=== PATIENT | male | born 1940 | race African-American/Black ===

== ENCOUNTER 2017-10-24 13:26 | Emergency (ER) | payer MEDICARE ==
[~2017-10-24] VITALS: Ht 175.3 cm; Wt 72.6 kg
[2017-10-24] MEDS ORDERED: Sodium Chloride 500ML 500 ML IV ONE (13:29)
[2017-10-24 13:51] VITALS: BP 86/66
[2017-10-24 14:03] LABS: BASOPHILS % (AUTO) 0.8 % (0.0-2.0); HEMATOCRIT 40.5 % (42.0-52.0); LYMPHOCYTES % (AUTO) 19.4 % (20.0-45.0); MEAN CORPUSCULAR VOLUME 100 FL (80-99); MONOCYTES % (AUTO) 10.2 % (1.0-10.0); NEUTROPHILS % (AUTO) 67.7 % (45.0-75.0); PLATELET COUNT 102 K/UL (150-450); RED BLOOD COUNT 4.06 M/UL (4.70-6.10); RED CELL DISTRIBUTION WIDTH 12.6 % (11.6-14.8)
[2017-10-24 14:15] LABS: INR 1.1 (0.9-1.1)
[2017-10-24 14:19] LABS: ANION GAP 6 mmol/L (5-15); BLOOD UREA NITROGEN 14 mg/dL (7-18); CARBON DIOXIDE 27 MMOL/L (21-32); CHLORIDE 108 MMOL/L (98-107); CREATININE 1.3 MG/DL (0.55-1.30); POTASSIUM 4.3 MMOL/L (3.5-5.1); SODIUM 141 MMOL/L (136-145)
[2017-10-24 14:29] LABS: ALANINE AMINOTRANSFERASE 29 U/L (12-78); ALBUMIN 3.2 G/DL (3.4-5.0); ALBUMIN/GLOBULIN RATIO 1.1 (1.0-2.7); ALKALINE PHOSPHATASE 57 U/L (46-116); ASPARTATE AMINO TRANSFERASE 20 U/L (15-37); BILIRUBIN,TOTAL 0.4 MG/DL (0.2-1.0); CREATINE KINASE 190 U/L (26-308)
--- NOTE | 2017-10-24 14:33 | Emergency Room Report ---
History of Present Illness General Chief Complaint: Syncope Source: Patient Present Illness HPI The patient presents post syncopal episode. He was in a swimming pool. He felt weakness. They got him out of the pool before he passed out. When paramedics arrived he was less responsive than his baseline however his blood pressure was also low. They started an IV and gave him a bolus of 250 of normal saline. This led to his blood pressure being slightly better to 86. Blood glucose also was 86. The patient has a history of several syncopal episodes in the past. He's been admitted at [place] with evaluation. His states that he has not unable to find out the etiology. Many times his heart rate is slow and sometimes his blood pressure was low. Her graft the patient's denies any fever, cough, pain, vomiting or diarrhea or dysuria or change in odor of urine. There is no swelling in extremities. There's been no clots in the past. History is limited because the patient has dementia and is unable to answer. He doesn't speak but will follow commands. Allergies: Coded Allergies: PENICILLINS (Verified Allergy, Unknown, 10/24/17) Patient History Limited by: medical condition Past Medical History: see triage record Social History: Denies: smoking, alcohol use, drug use Social History Narrative at home with family Reviewed Nursing Documentation: PMH: Agreed; PSxH: Agreed Nursing Documentation-PMH Past Medical History: No History, Except For Hx Cardiac Problems: Yes Hx Hypertension: Yes Review of Systems All Other Systems: limited Physical Exam Vital Signs Date Time Temp Pulse Resp B/P (MAP) Pulse Ox O2 Delivery O2 Flow Rate FiO2 10/24/17 13:20 97.9 79 19 86/66 99 Room Air 97.9 Sp02 EP Interpretation: reviewed, normal General Appearance: no apparent distress, other - ebulic, Chronically Ill Head: normocephalic Eyes: bilateral eye normal inspection, bilateral eye PERRL ENT: moist mucus membranes Neck: supple Respiratory: lungs clear, normal breath sounds Cardiovascular #1: regular rate, rhythm Cardiovascular #2: 2+ radial (R) Gastrointestinal: normal inspection, normal bowel sounds, non tender, no mass, non-distended Musculoskeletal: back normal, gait/station normal, normal range of motion Neurologic: responsive, motor strength/tone normal - moving all 4, sensory intact, other - not speaking Psychiatric: depressed affect Skin: normal inspection, warm/dry Medical Decision Making Diagnostic Impression: Primary Impression: Syncope Qualified Codes: R55 - Syncope and collapse Additional Impressions: Hypotension (arterial) Qualified Codes: I95.9 - Hypotension, unspecified Elevated lactic acid level ER Course Patient presents post syncopal episode. This is a very complex case as he is unable to give a history and has a history of having been evaluated for this problem in the past with undetermined etiology. He has hypotension at this time and needs to be evaluated for both problems. Differential includes acute myocardial infarction, hypovolemia, sepsis, arrhythmia, electrolyte abnormality amongst others. Evaluation will be with EKG, chest x-ray and labs. Based on his exam CT is not indicated at the moment ( states he is at baseline mentation at the moment). He'll be treated with a fluid bolus. Depending on what is found and he may require antibiotic coverage. Also consideration of occult Ty's disease. He is not tachycardic. Blood pressures improved with initial fluid bolus here. Patient's mentation is approximately the same. EKG without injury - sinus rhythm rate of 71 normal axis. CBC is essentially normal. Lactate is 2.8 which is elevated. Glucose minimally elevated. Chest x-ray no infiltrates. Urinalysis with no pyuria. Initially I was considering starting antibiotics however due to the lack of clear source this will be held. I discussed the case with Dr. Beal. He is working on acceptance at [facility]. He requested repeat lactic acid. Drawn and 2.1. Improved with resolution of hypotension and improved mentation. Laboratory Tests Test 10/24/17 13:45 10/24/17 14:30 10/24/17 14:50 White Blood Count 6.0 K/UL (4.8-10.8) Red Blood Count 4.06 M/UL (4.70-6.10) L Hemoglobin 13.0 G/DL (14.2-18.0) L Hematocrit 40.5 % (42.0-52.0) L Mean Corpuscular Volume 100 FL (80-99) H Mean Corpuscular Hemoglobin 32.1 PG (27.0-31.0) H Mean Corpuscular Hemoglobin Concent 32.2 G/DL (32.0-36.0) Red Cell Distribution Width 12.6 % (11.6-14.8) Platelet Count 102 K/UL (150-450) L Mean Platelet Volume 8.9 FL (6.5-10.1) Neutrophils (%) (Auto) 67.7 % (45.0-75.0) Lymphocytes (%) (Auto) 19.4 % (20.0-45.0) L Monocytes (%) (Auto) 10.2 % (1.0-10.0) H Eosinophils (%) (Auto) 2.0 % (0.0-3.0) Basophils (%) (Auto) 0.8 % (0.0-2.0) Prothrombin Time 11.1 SEC (9.30-11.50) Prothrombin Time INR 1.1 (0.9-1.1) PTT 23 SEC (23-33) Sodium Level 141 MMOL/L (136-145) Potassium Level 4.3 MMOL/L (3.5-5.1) Chloride Level 108 MMOL/L (98-107) H Carbon Dioxide Level 27 MMOL/L (21-32) Anion Gap 6 mmol/L (5-15) Blood Urea Nitrogen 14 mg/dL (7-18) Creatinine 1.3 MG/DL (0.55-1.30) Estimate Glomerular Filtration Rate mL/min (>60) Glucose Level 123 MG/DL (74-106) H Lactic Acid Level 2.80 mmol/L (0.4-2.0) H Pending Calcium Level 8.0 MG/DL (8.5-10.1) L Total Bilirubin 0.4 MG/DL (0.2-1.0) Aspartate Amino Transferase (AST) 20 U/L (15-37) Alanine Aminotransferase (ALT) 29 U/L (12-78) Alkaline Phosphatase 57 U/L (46-116) Total Creatine Kinase 190 U/L (26-308) Troponin I 0.000 ng/mL (0.000-0.056) Pro-B-Type Natriuretic Peptide 96 pg/mL (0-125) Total Protein 6.1 G/DL (6.4-8.2) L Albumin 3.2 G/DL (3.4-5.0) L Globulin 2.9 g/dL Albumin/Globulin Ratio 1.1 (1.0-2.7) Urine Color Yellow Urine Appearance Clear Urine pH 6 (4.5-8.0) Urine Specific [place] 1.010 (1.005-1.035) Urine Protein 2+ (NEGATIVE) H Urine Glucose (UA) Negative (NEGATIVE) Urine Ketones 1+ (NEGATIVE) H Urine Occult Blood Negative (NEGATIVE) Urine Nitrite Negative (NEGATIVE) Urine Bilirubin Negative (NEGATIVE) Urine Urobilinogen 1 MG/DL (0.0-1.0) H Urine Leukocyte Esterase Negative (NEGATIVE) Urine RBC 0-2 /HPF (0 - 0) H Urine WBC 0-2 /HPF (0 - 0) Urine Squamous Epithelial Cells None /LPF (NONE/OCC) Urine Bacteria Few /HPF (NONE) EKG Diagnostic Results Rate: normal Rhythm: NSR ST Segments: no acute changes Rhythm Strip Diag. Results EP Interpretation: yes Rhythm: NSR, no PVC's, no ectopy Chest X-Ray Diagnostic Results Chest X-Ray Diagnostic Results : Chest X-Ray Ordered: Yes # of Views/Limited/Complete: 1 View Indication: Other EP Interpretation: Yes Interpretation: no consolidation, no effusion, no pneumothorax Impression: No acute disease Electronically Signed by: Electronically signed by Jimbo Gee MD Last Vital Signs Date Time Temp Pulse Resp B/P (MAP) Pulse Ox O2 Delivery O2 Flow Rate FiO2 10/24/17 17:31 98.5 74 24 121/71 100 Room Air 98.0 Status: improved Disposition: XFER SHT-TRM HOSP Condition: Serious Jimbo Gee M.D. Oct 24, 2017 14:33
[2017-10-24] MEDS ORDERED: LEXAPRO10 MG ORAL (14:38)
[2017-10-24] MEDS ORDERED: ASPIR 8181 MG ORAL (14:38)
[2017-10-24] MEDS ORDERED: ATORVASTATIN CA40 MG ORAL (14:38)
[2017-10-24 14:58] LABS: APPEARANCE,URINE CLEAR; BILIRUBIN, URINE NEGATIVE (NEGATIVE); GLUCOSE, URINE (UA) NEGATIVE (NEGATIVE); KETONES,URINE 1+ (NEGATIVE); LEUKOCYTE ESTERASE ,URINE NEGATIVE (NEGATIVE); NITRITE,URINE NEGATIVE (NEGATIVE); PH,URINE 6 (4.5-8.0); PROTEIN,URINE 2+ (NEGATIVE); UROBILINOGEN,URINE 1 MG/DL (0.0-1.0)
[2017-10-24 14:59] LABS: COLOR,URINE YELLOW
[2017-10-24 15:52] VITALS: BP 107/62
[2017-10-24 17:31] VITALS: BP 121/71
--- NOTE | 2017-10-24 17:39 | Cardiology Report ---
APPROVED REPORT EKG Measurement Heart [id number] Normal sinus rhythm Normal ECG
--- NOTE | 2017-10-25 11:50 | Diagnostic Imaging Report ---
Indication: Dyspnea Comparison: None A single view chest radiograph was obtained. Findings: Cardiomediastinal appearance is within normal limits for age. Right hilar calcifications noted. Pulmonary vascularity is appropriate. The diaphragmatic contour is smooth and costophrenic angles are sharp. No pleural effusions are identified. The bones are osteopenic. Impression: No acute findings Old granulomatous disease
== END 2017-10-24 17:45 | disposition short-term general hospital (02) ==
LOC: EDBD 13:26 → EMR 14:00
DX: R55 Syncope and collapse (principal); I10 Essential (primary) hypertension; Z88.0 Allergy status to penicillin
CPT/HCPCS: 36415; 71045; 80053; 81003; 82550; 83605; 83880; 84484; 85025; 85610; 85730; 87040; 93005; 96360; 99285